=== PATIENT | female | born 1965 | race Caucasian/White ===

== ENCOUNTER → 2016-09-07 | Outpatient (CLI) | payer BC ==
--- NOTE | 2016-09-08 10:35 | MM ---
Reason for exam: screening (asymptomatic). Last mammogram was performed 1 year and 1 month ago. History: Took hormonal contraceptives for 7 years beginning at age 19. Physical Findings: A clinical breast exam by your physician is recommended on an annual basis and results should be correlated with mammographic findings. MG Screening Mammo w CAD Bilateral CC and MLO view(s) were taken. Prior study comparison: August 11, 2015, bilateral MG screening mammo w CAD. July 02, 2014, bilateral MG screening mammo w CAD. The breast tissue is extremely dense which could obscure a lesion on mammography. No significant changes when compared with prior studies. ASSESSMENT: Benign, BI-RAD 2 RECOMMENDATION: Routine screening mammogram of both breasts in 1 year.
== END | disposition home or self-care (01) ==
LOC: RADMAMWWP 11:02
PROVIDERS: ATTEND Obstetrics & Gynecology
DX: Z12.31 Encounter for screening mammogram for malignant neoplasm of breast (principal)

== ENCOUNTER → 2017-10-12 | Outpatient (CLI) | payer BC ==
--- NOTE | 2017-10-14 07:47 | MM ---
Reason for exam: screening (asymptomatic). Last mammogram was performed 1 year and 1 month ago. History: Took hormonal contraceptives for 7 years beginning at age 19. Physical Findings: A clinical breast exam by your physician is recommended on an annual basis and results should be correlated with mammographic findings. MG 3D Screening Mammo W/Cad Bilateral CC and MLO view(s) were taken. Prior study comparison: September 07, 2016, bilateral MG screening mammo w CAD. August 11, 2015, bilateral MG screening mammo w CAD. The breast tissue is extremely dense which could obscure a lesion on mammography. No significant changes when compared with prior studies. ASSESSMENT: Benign, BI-RAD 2 RECOMMENDATION: Routine screening mammogram of both breasts in 1 year.
== END | disposition home or self-care (01) ==
LOC: RADMAMWWP 10:50
PROVIDERS: ATTEND Obstetrics & Gynecology
DX: Z12.31 Encounter for screening mammogram for malignant neoplasm of breast (principal)
CPT/HCPCS: 77063; 77067

== ENCOUNTER → 2018-11-14 | Outpatient (CLI) | payer BC ==
--- NOTE | 2018-11-15 08:42 | MM ---
Reason for exam: screening (asymptomatic). Last mammogram was performed 1 year and 1 month ago. History: Patient is postmenopausal and has history of other cancer at age 51. Took hormonal contraceptives for 7 years beginning at age 19. Physical Findings: A clinical breast exam by your physician is recommended on an annual basis and results should be correlated with mammographic findings. MG 3D Screening Mammo W/Cad Bilateral CC and MLO view(s) were taken. Prior study comparison: October 12, 2017, bilateral MG 3d screening mammo w/cad. September 07, 2016, bilateral MG screening mammo w CAD. The breast tissue is extremely dense which could obscure a lesion on mammography. No suspicious abnormality. No significant changes when compared with prior studies. ASSESSMENT: Negative, BI-RAD 1 RECOMMENDATION: Routine screening mammogram of both breasts in 1 year.
== END | disposition home or self-care (01) ==
LOC: RADMAMWWP 10:04
PROVIDERS: ATTEND Obstetrics & Gynecology
DX: Z12.31 Encounter for screening mammogram for malignant neoplasm of breast (principal)
CPT/HCPCS: 77063; 77067

== ENCOUNTER → 2020-06-10 | Outpatient (CLI) | payer OTHER ==
--- NOTE | 2020-06-11 10:41 | MM ---
Reason for exam: screening (asymptomatic). Last mammogram was performed 1 year and 7 months ago. History: Patient is postmenopausal and has history of other cancer at age 51. Took hormonal contraceptives for 7 years beginning at age 19. Physical Findings: A clinical breast exam by your physician is recommended on an annual basis and results should be correlated with mammographic findings. MG 3D Screening Mammo W/Cad Bilateral CC and MLO view(s) were taken. Prior study comparison: November 14, 2018, bilateral MG 3d screening mammo w/cad. October 12, 2017, bilateral MG 3d screening mammo w/cad. The breast tissue is extremely dense which could obscure a lesion on mammography. There is no discrete abnormality. ASSESSMENT: Negative, BI-RAD 1 RECOMMENDATION: Routine screening mammogram of both breasts in 1 year.
== END | disposition home or self-care (01) ==
LOC: RADMAMWWP 10:49
PROVIDERS: ATTEND Obstetrics & Gynecology
DX: Z12.31 Encounter for screening mammogram for malignant neoplasm of breast (principal)
CPT/HCPCS: 77063; 77067

== ENCOUNTER → 2021-07-27 | Outpatient (CLI) | payer OTHER ==
--- NOTE | 2021-07-28 10:30 | MM ---
Reason for exam: screening (asymptomatic). Last mammogram was performed 1 year and 2 months ago. History: Patient is postmenopausal and has history of other cancer at age 51. Took hormonal contraceptives for 7 years beginning at age 19. Physical Findings: A clinical breast exam by your physician is recommended on an annual basis and results should be correlated with mammographic findings. MG 3D Screening Mammo W/Cad Bilateral CC and MLO view(s) were taken. Prior study comparison: June 10, 2020, bilateral MG 3d screening mammo w/cad. November 14, 2018, bilateral MG 3d screening mammo w/cad. The breast tissue is heterogeneously dense. This may lower the sensitivity of mammography. There is no discrete abnormality. No significant changes when compared with prior studies. ASSESSMENT: Negative, BI-RAD 1 RECOMMENDATION: Routine screening mammogram of both breasts in 1 year.
== END | disposition home or self-care (01) ==
LOC: RADMAMWWP 13:19
PROVIDERS: ATTEND Obstetrics & Gynecology
DX: Z12.31 Encounter for screening mammogram for malignant neoplasm of breast (principal); Z78.0 Asymptomatic menopausal state
CPT/HCPCS: 77063; 77067

== ENCOUNTER → 2023-05-04 | Outpatient (CLI) | payer OTHER ==
--- NOTE | 2023-05-05 12:41 | MM ---
Reason for Exam: Screening (asymptomatic). Last mammogram was performed 1 year(s) and 10 month(s) ago. Patient History: Menarche at age 17. First Full-Term at age 29. Postmenopausal. Other cancer, age 51. Hormonal Contraceptives for 7 years from age 19 until age 26. Risk Values: Yamile 5 year model risk: 1.3%. NCI Lifetime model risk: 8.0%. Prior Study Comparison: 11/14/2018 Bilateral Screening Mammogram, [facility]. 06/10/2020 Bilateral Screening Mammogram, [facility]. 07/27/2021 Bilateral Screening Mammogram, [facility]. Tissue Density: The breast tissue is extremely dense which could obscure a lesion on mammography. Findings: Analyzed By CAD. Pattern appears symmetrical and stable. No significant interval change is evident. No suspicious groups of microcalcifications, spiculated or lobular masses, architectural distortion or other secondary signs of malignancy are mammographically apparent. Overall Assessment: Benign, BI-RAD 2 Management: Screening Mammogram of both breasts in 1 year. A negative mammogram report should not preclude additional follow up of suspicious palpable abnormalities. Patient should continue monthly self breast exam. A clinical breast exam by your physician is recommended on an annual basis and results should be correlated with mammographic findings. Electronically signed and approved by: Cristóbal Cormier D.O. Radiologis
== END | disposition home or self-care (01) ==
LOC: RADMAMWWP 14:53
PROVIDERS: ATTEND Obstetrics & Gynecology
DX: Z12.31 Encounter for screening mammogram for malignant neoplasm of breast (principal); Z78.0 Asymptomatic menopausal state
CPT/HCPCS: 77063; 77067

== ENCOUNTER → 2023-09-21 | Outpatient (CLI) | payer BC ==
[2023-09-21 18:40] LABS: Basophils # (A) 0.04 X 10*3/uL (0.00-0.10); Basophils % (A) 0.7 %; Eosinophils # (A) 0.11 X 10*3/uL (0.04-0.35); Eosinophils % (A) 1.9 %; HCT 42.3 % (37.2-46.3); Lymphocytes # (A) 2.78 X 10*3/uL (0.90-5.00); Lymphocytes % (A) 47.9 %; MCH 30.8 pg (27.0-32.0); MCHC 33.1 g/dL (32.0-37.0); Mean Platelet Volume 11.7 FL (9.5-12.2); Monocytes # (A) 0.32 X 10*3/uL (0.20-1.00); Monocytes % (A) 5.5 %; NRBC Per 100 WBC 0 X 10*3/uL (0.00-0.01); Neutrophils # (A) 2.53 X 10*3/uL (1.80-7.70); Neutrophils % (A) 43.7 %; Platelet Count 172 X 10*3/uL (140-440); RBC 4.55 X 10*6/uL (4.10-5.20); RDW 12.2 % (11.5-14.5)
[2023-09-21 20:25] LABS: Blood Urea Nitrogen 14.8 mg/dL (9.0-27.0); Carbon Dioxide 25.4 mmol/L (21.6-31.8); Chloride 103 mmol/L (96-109); Glucose 97 mg/dL (70-110); Potassium 4.2 mmol/L (3.5-5.5); Sodium 141 mmol/L (135-145)
== END | disposition home or self-care (01) ==
LOC: LABPAT 14:06
PROVIDERS: ATTEND Obstetrics & Gynecology
DX: Z01.812 Encounter for preprocedural laboratory examination (principal); N81.11 Cystocele, midline
CPT/HCPCS: 80051; 82565; 82947; 84520; 85025; 86850; 86900; 86901; 87086

== ENCOUNTER 2023-09-29 05:44 | Day surgery (SDC) | payer BC, OTHER ==
[2023-09-23 15:19] VITALS: BMI 24.9
--- NOTE | 2023-09-28 23:05 | HP ---
HISTORY AND PHYSICAL DATE OF SURGERY: 09/29/2023. HISTORY OF PRESENT ILLNESS: The patient is a 58-year-old, 4, para 3-0-1-3, who presents to the office complaining of significantly increasing vaginal bulging and pressure leading to significant discomfort. She has had some difficulty emptying her bladder completely, but denies any significant incontinence. Examination bears out the presence of pelvic organ prolapse to include specifically a grade 3 cystocele and at least grade 2+ uterine prolapse. PAST MEDICAL HISTORY: Significant for asthma and remote history of menorrhagia for which she underwent endometrial ablation years ago. PAST SURGICAL HISTORY: Includes only hysteroscopy with NovaSure endometrial ablation, but it was done in the office, so there is no particular anesthetic history. OBSTETRICAL HISTORY: 4, para 3-0-1-3 with 3 term vaginal deliveries without complications and 1 early miscarriage that did not apparently require D and C. GYNECOLOGIC HISTORY: Unremarkable with no history of any infections to include STDs. FAMILY HISTORY: Noncontributory. SOCIAL HISTORY: The patient is single and is a 1 ytdy-rpw-ndn smoker. She works for the [employer] and reports occasional alcohol and no other social concerns. CURRENT MEDICATIONS: Include Wellbutrin XL 150 mg daily. ALLERGIES: No known drug allergies. REVIEW OF SYSTEMS: Confined to history of present illness. PHYSICAL EXAMINATION: VITAL SIGNS: Stable, the patient is afebrile. GENERAL: This is a well-developed, well-nourished white female, in no acute distress. HEART: Regular rhythm and rate without murmur. LUNGS: Clear to auscultation bilaterally in all gould. ABDOMEN: Nondistended, has normoactive bowel sounds, soft, nontender, without any palpable masses, hepatosplenomegaly, or hernias. EXTREMITIES: Without any cyanosis, clubbing, or edema and are nontender to palpation bilaterally. PELVIS: Demonstrates normal external genitalia and BUS with normal vaginal mucosa and cervix. There is no cervical motion tenderness. There is a grade 2+ uterine prolapse present as well as a grade 3 cystocele present. The uterus itself is atrophic in size, mid plane, mobile, and nontender as well as being normal in shape. The adnexa are normal and nontender without any apparent masses bilaterally. ASSESSMENT AND PLAN: Symptomatic pelvic organ prolapse with grade 3 cystocele and grade 2+ uterine prolapse. I have discussed options with the patient and she has requested definitive treatment. We are planning for vaginal hysterectomy with anterior colporrhaphy, possible bilateral salpingectomy should that be amenable to removal and possible posterior colporrhaphy should that defect be noted under anesthesia. The risks and complications of all these procedures have been discussed at length including the risks for bleeding, bleeding requiring transfusion, infection, and injury to local structures to specifically include the bowel, bladder, and ureters. She has understood all of these risks and has agreed to proceed. MMODL / IJN: [id number] /
[2023-09-29] MEDS ORDERED: LIDOCAINE 1% (10MG/ML) FOR IV START INTRADERMA PRN (05:50)
[2023-09-29] MEDS: LACTATED RINGERS 1,000 ML IV SCH ×2 (06:45→10:22)
[2023-09-29] MEDS: DEXAMETHASONE SOD PHOSPHATE 4 MG/ML 1 ML VIAL IV ONE (06:46)
[2023-09-29] MEDS: ONDANSETRON 4 MG/2 ML VIAL IVP ONE (06:46)
[2023-09-29] MEDS ORDERED: MIDAZOLAM 2 MG/2 ML VIAL IV PRN (07:00)
[2023-09-29] MEDS ORDERED: HYDROmorphone 0.5 MG/0.5 ML SYRINGE IVP PRN (07:00)
[2023-09-29] MEDS: MIDAZOLAM 2 MG/2 ML VIAL IVP ONE (07:01)
[2023-09-29] MEDS ORDERED: MIDAZOLAM 2 MG/2 ML VIAL ONE (07:25)
[2023-09-29] MEDS ORDERED: PHENYLEPHRINE-0.9% NACL SYG 1,000 MCG/10 ML SYRINGE ONE (07:25)
[2023-09-29] MEDS ORDERED: PROPOFOL 10 MG/ML 20 ML VIAL IV ONE (07:25)
[2023-09-29] MEDS ORDERED: NEOSTIGMINE 1 MG/ML 10 ML VIAL ONE (07:25)
[2023-09-29] MEDS ORDERED: GLYCOPYRROLATE 0.2 MG/ML 2 ML VIAL ONE (07:25)
[2023-09-29] MEDS ORDERED: fentaNYL (PF) 50 MCG/ML 2 ML AMP ONE (07:25)
[2023-09-29] MEDS ORDERED: SUCCINYLCHOLINE CHLORIDE 200 MG/10 ML VIAL IV ONE (07:25)
[2023-09-29] MEDS ORDERED: ROCURONIUM 10 MG/ML (5 ML VIAL) IV ONE (07:25)
[2023-09-29] MEDS ORDERED: LIDOCAINE 1% INJ 10MG/ML (20 ML MDV) ONE (07:25)
[2023-09-29] MEDS ORDERED: MORPHINE SULFATE (PF) 0.3 MG/0.3 ML SYR ONE (07:25)
[2023-09-29] MEDS ORDERED: diphenhydrAMINE 50 MG/ML 1 ML VIAL ONE (07:25)
[2023-09-29] MEDS ORDERED: ACETAMINOPHEN IV (For NPO) 1,000 MG/100 ML VIAL ONE (07:25)
[2023-09-29] MEDS ORDERED: KETOROLAC 15 MG/ML 1 ML VIAL ONE (07:25)
[2023-09-29] MEDS: VASOPRESSIN 20 UNIT/ML 1 ML VIAL IV ONE (08:01)
[2023-09-29] MEDS: BACITRACIN ZINC 500 UNIT/GM OINT 28.4 GM TUBE TOPICAL ONE (08:01)
[2023-09-29] MEDS ORDERED: METOCLOPRAMIDE 5 MG/ML 2 ML VIAL IVP PRN (09:19)
[2023-09-29] MEDS ORDERED: ONDANSETRON 4 MG/2 ML VIAL IVP PRN (09:19)
[2023-09-29] MEDS ORDERED: IBUPROFEN 600 MG TAB PO PRN (09:19)
[2023-09-29] MEDS ORDERED: Acetaminophen-Codeine 300-30mg TAB PO PRN ×2 (09:19)
[2023-09-29] MEDS ORDERED: SIMETHICONE 80 MG CHEWABLE PO PRN (09:19)
--- NOTE | 2023-09-29 09:30 | P.OP ---
Date of Procedure: 09/29/23 Preoperative Diagnosis: 1. Symptomatic grade 3 cystocele #2. Grade 2+ uterine prolapse Postoperative Diagnosis: Same Procedure(s) Performed: 1. Vaginal hysterectomy #2. Left salpingectomy #3. Anterior colporrhaphy Anesthesia: EBENEZER Surgeon: Phoenix Rod Enrollment Management Coordinator #1: Erika Sandoval Estimated Blood Loss (ml): 20 IV fluids (ml): 500 Urine output (ml): 20 Pathology: other (Uterus and left fallopian tube) Condition: stable Disposition: PACU Operative Findings: Preoperative findings are confirmed from notation in the preop with a grade 3 cystocele and a grade 2+ to 3 cervical/uterine prolapse. There was no significant rectocele noted. The bilateral ovaries were normal to inspection and palpation. The right fallopian tube was tethered high in the pelvis and could not be brought into the field for removal while the left tube was easily removed. Clear urine was seen before and after the case. Description of Procedure: The patient was prepped and draped in usual fashion after general endotracheal anesthesia was administered by the anesthesiologist. A weighted speculum was placed and the bladder was drained of approximately 20 cc of clear priyanka urine. The cervix was grasped with a double-tooth tenaculum and the cervical vaginal mucosa infused with diluted vasopressin solution. It was then incised sharply with a scalpel circumferentially and reflected distally both bluntly and sharply. The posterior peritoneum was identified and incised sharply with the Beard scissors. The peritoneum was then tagged with a stitch of 2-0 Vicryl for later use. The short weighted speculum was replaced with a long weighted speculum. After adequate reflection of the mucosa had been carried out, serial bites were taken starting at the uterosacral ligament bilaterally using curved Caden Shelby clamps. Each pedicle was cut and suture-ligated with a transfixion stitch of 0 Vicryl. After several bites of the cardinal ligament towards the utero-ovarian ligaments were taken bilaterally, the uterus was inverted posteriorly and the anterior peritoneum easily identified and opened sharply with the Bovie. This isolated the utero-ovarian pedicle on each side which was clamped with a curved Caden Shelby clamp, cut and the uterus passed for pathological diagnoses. Each pedicle was suture-ligated with a transfixion stitch of 0 Vicryl followed by a free tie of 0 Vicryl. Examination of the right tube and ovary demonstrated they were both relatively tethered and the tube could not be safely brought into the field for removal. On the left side, however, the tube was easily brought into the field and was isolated and clamped with a curved Claudine Shelby clamp and then removed and sent along with the specimen. The pedicle was suture-ligated with a transfixion stitch of 0 Vicryl. After ensuring hemostasis, all pedicles were released and the long weighted speculum was replaced with a short weighted speculum. The previously placed stitch of 2-0 Vicryl was utilized to close the parietal peritoneum in a pursestring fashion. The uterosacral ligaments which had been left with sutures attached were then passed through the contralateral uterosacral ligament with the stitch and through the mucosa and firmly tied down in a modified Nunes's culdoplasty. The intervening open posterior vaginal cuff was closed with a single enjmpq-eg-sjrxe stitch of 0 Vicryl. 1 stitch was also placed anteriorly. The remaining open anterior vaginal cuff was grasped with Allis clamps. The vesicovaginal mucosa was infused with diluted vasopressin solution, undermined in the midline with the Metzenbaum scissors and divided to the urethral apex with Allises placed along the margins. The overlying mucosa was reflected sharply and bluntly from the underlying tissues. After adequate reflection had been carried out, serial Carla plication stitches were placed using 2-0 PDS. Prior to placement of the plication stitches, Graham catheter was placed and clear urine noted. After completing the series of Carla plication stitches, the intervening redundant mucosa was trimmed with the Metzenbaum scissors and discarded. The vaginal Koza was then closed with a running locking stitch of 2- 0 Vicryl from the urethral apex to the apex of the vagina. Hemostasis was excellent throughout. The Graham catheter was again opened and noted to have clear urine with urethral mobility of the Graham. The vagina was packed with 1 inch iodophor gauze covered with bacitracin ointment. Estimated blood loss for the case was 20 cc or less. There were no complications. All sponge, instrument, and needle counts were correct. The patient tolerated the procedure well and proceeded to the recovery room in stable condition. Prior to packing the vagina, the posterior aspect of the vagina was examined and there was noted to be no significant rectocele present.
[2023-09-29] MEDS: LACTATED RINGERS 1,000 ML IV ONE (09:36)
[2023-09-29] MEDS: diphenhydrAMINE 50 MG/ML 1 ML VIAL IVP PRN (15:09)
[2023-09-29] MEDS: KETOROLAC 15 MG/ML 1 ML VIAL IVP PRN (15:10)
[2023-09-29 16:57] VITALS: RESP 16
[2023-09-29] MEDS: SENNOSIDES-DOCUSATE SODIUM 1 EACH TAB PO SCH (20:00)
[2023-09-30 07:22] LABS: Basophils % (A) 0 %; Eosinophils # (A) 0.1 k/uL (0-0.7); Eosinophils % (A) 1 %; HCT 38.7 % (34.0-46.0); HGB 12.5 gm/dL (11.4-16.0); Lymphocytes # (A) 2.8 k/uL (1.0-4.8); Lymphocytes % (A) 37 %; MCH 30.6 pg (25.0-35.0); MCHC 32.4 g/dL (31.0-37.0); MCV 94.4 fL (80.0-100.0); Mean Platelet Volume 8.7; Monocytes # (A) 0.4 k/uL (0-1.0); Monocytes % (A) 5 %; Neutrophils # (A) 4.1 k/uL (1.3-7.7); Neutrophils % (A) 55 %; Platelet Count 136 k/uL (150-450); RDW 12.1 % (11.5-15.5); WBC 7.5 k/uL (3.8-10.6)
[2023-09-30] MEDS ORDERED: ACETAMINOPHEN TAB 325 MG TAB PO PRN (09:21)
[2023-09-30 10:02] VITALS: BP 137/59; PULSE 63; TEMP 97.6
--- NOTE | 2023-09-30 10:08 | P.DS ---
Providers Expected date of discharge: 09/30/23 Attending physician: Phoenix Rod Primary care physician: Randolph Treviño - Discharge Diagnosis(es) (1) Cystocele Current Visit: Yes Status: Acute (2) Uterine prolapse Current Visit: Yes Status: Acute Hospital Course: The patient is a 58-year-old 4 para 3-0-1-3 who presented to the office with complaints of increasing vaginal bulging and discomfort. She was found with a grade 3 cystocele and grade 2+ uterine prolapse. She requested definitive therapy and was ultimately taken to the operating room where she underwent vaginal hysterectomy with left salpingectomy and anterior colporrhaphy in an uncomplicated fashion. The right tube could not be accessed to remove it. These procedures were uncomplicated in nature. She was deemed stable for discharge on postoperative day #1 and was discharged home to follow-up in the office in 2 weeks for a recheck in 6 weeks routinely. Discharge instructions included calling for any significantly increased bleeding, fever, abdominal pain, urinary complaints, GI complaints, or anything else that concerned her. She was additionally instructed to have nothing in the vagina for at least 6 weeks time and to abstain from any heavy lifting over the same period of time. She understood her instructions and agrees to follow-up as noted above. Discharge medications included only gajo-bud-yjcbwqx analgesic pain medications as well as any normal home medications. Discharge hemoglobin and hematocrit were 12.5 and 38.7 respectively. Procedures: #1. Vaginal hysterectomy #2. Left salpingectomy #3. Anterior colporrhaphy Patient Condition at Discharge: Stable Plan - Discharge Summary Discharge Rx Participant: No New Discharge Prescriptions: No Action buPROPion XL [Wellbutrin XL] 300 mg PO QAM Discharge Medication List buPROPion XL [Wellbutrin XL] 300 mg PO QAM 09/23/23 [History] Follow up Appointment(s)/Referral(s): Phoenix Rod MD [STAFF PHYSICIAN] - 2 Weeks Discharge Disposition: HOME SELF-CARE
--- NOTE | 2023-09-30 11:03 | P.PN ---
Progress Note - Text Progress Note Date: 09/30/23 Postoperative day 1 status post vaginal hysterectomy, under General endotracheal anesthesia, and intrathecal morphine given for postoperative analgesia, patient doing well, there is no anesthesia related complications, Patient had no headache, vital signs stable , Assessment and plan= postop day 1 status post vaginal hysterectomy, doing well there is no anesthesia related complication.
--- NOTE | 2023-10-01 14:54 | P.ANPRN ---
Procedure Note - Anesthesia - Epidural/Spinal Spinal Time Out Performed: Yes Date of Procedure: 09/29/23 Procedure Start Time: 07:00 Procedure Stop Time: 07:04 Location of Patient: PreOp Indication: Acute Post-Operative Pain, Requested by Surgeon Sedation Type: Sedate with meaningful contact maintained Preparation: Sterile Dressing Position: Supine Needle Guage: 25 Blood Aspirated: No Pain Paresthesia on Injection Noted: No Events: Uneventful and Well Tolerated (300 mics plus fentanyl 25 mics given intrathecally)
== END 2023-09-30 12:35 | disposition home or self-care (01) ==
LOC: OR 05:44 → 4FBP 08:36 → OR 09-30 12:35
PROVIDERS: ATTEND Obstetrics & Gynecology
DX: N72 Inflammatory disease of cervix uteri (principal); N84.1 Polyp of cervix uteri; N81.2 Incomplete uterovaginal prolapse; G89.18 Other acute postprocedural pain; J45.909 Unspecified asthma, uncomplicated; F17.210 Nicotine dependence, cigarettes, uncomplicated; Z79.899 Other long term (current) drug therapy
CPT/HCPCS: 85025; 88309; 58262; 57240; J2250; J1200; J1100; J0690; J2405; J1885 ×2

== ENCOUNTER → 2024-09-18 | Outpatient (CLI) | payer OTHER ==
--- NOTE | 2024-09-18 14:41 | MM ---
Reason for Exam: Screening (asymptomatic). Last mammogram was performed 1 year(s) and 4 month(s) ago. Patient History: Menarche at age 17. First Full-Term at age 29. Postmenopausal. Other cancer, age 51. Currently using Progesterone, starting at age 58. Hormonal Contraceptives for 7 years from age 19 until age 26. Risk Values: Yamile 5 year model risk: 1.4%. NCI Lifetime model risk: 7.8%. Prior Study Comparison: 06/10/2020 Bilateral Screening Mammogram, [facility]. 07/27/2021 Bilateral Screening Mammogram, [facility]. 05/04/2023 Bilateral MG 3D screening mammo w/cad, [facility]. Tissue Density: The breasts are extremely dense, which lowers the sensitivity of mammography. Findings: Analyzed By CAD. There is no suspicious group of microcalcifications or new suspicious mass in either breast. Overall Assessment: Benign, BI-RAD 2 Management: Screening Mammogram of both breasts in 1 year. . Patient should continue monthly self-breast exams. A clinical breast exam by your physician is recommended on an annual basis. This exam should not preclude additional follow-up of suspicious palpable abnormalities. Note on Yamile scores and lifetime risk: 1. A Yamile score greater than 3% is considered moderate risk. If this is the case, consider specialist referral to assess eligibility for a risk reducing agent. 2. If overall lifetime risk for the development of breast cancer is 20% or higher, the patient may qualify for future screening with alternating mammogram and breast MRI. [facility], , 09/18/2024 2:38 PM. Electronically signed and approved by: aRndolph Lindsey M.D. Radiologis
== END | disposition home or self-care (01) ==
LOC: RADMAMWWP 14:12
PROVIDERS: ATTEND Obstetrics & Gynecology
DX: Z12.31 Encounter for screening mammogram for malignant neoplasm of breast (principal); R92.343 Mammographic extreme density, bilateral breasts; Z78.0 Asymptomatic menopausal state; Z92.0 Personal history of contraception
CPT/HCPCS: 77063; 77067